=== PATIENT | male | born 1945 | race Caucasian/White ===

== ENCOUNTER 2018-11-06 09:49 | Outpatient (CLI) | payer MEDICARE ==
--- NOTE | 2018-11-06 12:05 | CT ---
FCT ABDOMEN AND PELVIS WITH AND WITHOUT IV CONTRAST: HISTORY: Transitional cell carcinoma of the bladder in 2012. Follow-up. FINDINGS: Prior exams not available for direct comparison. Calcified granulomata at the lung bases are consiste nt with healed granulomatous disease. Each renal collecting system, ureter, and the urinary bladder a re decompressed without stone apparent. No filling defects are apparent within the urinary system on the delayed images. Lobular irregularity of the bladder base has the appearance of an enlarged prosta te gland. A 2.9 cm lobular parapelvic cyst at the inferior pole of the left kidney effaces the inferior pole co llecting system. Multiple cortical cysts of the left kidney are also apparent, measuring up to 3.5 cm diameter along the lateral cortex near the inferior pole. Tiny right cortical cysts. Small hiatal he rnia. Calcification in the arterial structures. Diverticula arise from the colon without adjacent inf lammation. IMPRESSION: 1. No urinary tract filling defects are apparent to suggest recurrent transitional cell carcinoma. 2. Renal cysts. 3. Atherosclerosis. Transcribed Date/Time: 11/06/2018 12:10 PM
[2018-11-06] MEDS ORDERED: ISOVUE-370 76%-LOCM 1 ML ONE (14:45)
== END 2018-11-06 09:50 | disposition home or self-care (01) ==
LOC: BICCT 09:49
PROVIDERS: ATTEND Urology
DX: D09.0 Carcinoma in situ of bladder (principal); C67.9 Malignant neoplasm of bladder, unspecified; N28.1 Cyst of kidney, acquired; R35.0 Frequency of micturition; R97.20 Elevated prostate specific antigen [PSA]; I70.0 Atherosclerosis of aorta
CPT/HCPCS: 74178; 82565